=== PATIENT | female | born 1995 | race Caucasian/White ===

== ENCOUNTER 2023-10-17 09:12 | Outpatient (AMB) | payer OTHER, SELFPAY ==
--- NOTE | 2023-10-17 09:13 | MHC.OFFVIS ---
Intake Vital Signs 10/17/23 09:18 Height 5 ft Weight 211 lb BMI 41.2 Intake Visit Reasons: New patient Amenorrhea Interactive Media Marketing Director Required: No Information Interpreted: clinical only Craft Manager: Craft Manager Present Allergies No Known Allergies [No Known Allergies*] Allergy (Unverified 10/17/23 09:19) Medication List - Last Reconciled 10/17/23 by Ashlee Woo CNM No Known Home Meds Is last menstrual period known: Yes Last menstrual period: 10/13/23 Patient : No Do you need a note to return to daycare/school/sports/work: No HPI New patient Amenorrhea HPI Details Patient is here as a new patient but she came to this practice in the past for care and for her and delivery delivering her baby November 20 the birthing center. She is very sad the birthing center closed. She says that is 1 reason she has not had another baby yet. She is sexually active but has not had sex in the last couple of months she has not been on control and she would like to get back on control she was on control pills in the past and did well with them she quit smoking last year. While the visit was made by someone listing amenorrhea as the problem her periods she says are more irregular she reviewed in her telephone dates of the last menses. She has had regular menses all of the fall including June 14 to 12 01 of July 12 to 14 11 of August 13 of September 12 to October 13 till now spotting. Looking back on when she might have had what would could be called in irregular. She had a period in December from the to , then for January 24 2 the , but then she did not get her next period until March 13 and that 1 was late. Discussed that it is possible to have late ovulation or an anovulatory cycle responsible for a late menses at any time but also that it is more common to occur with the setting of increased body mass because of the production of hormones essentially in fat tissue. Reviewed danger signs of control pills and what to do if she has any of them she will start the pill this evening she feels that taking the pill in the evening is the best time for her because her child is autistic and the mornings are chaotic but by the evening after bath time everything is chill. She would like to schedule her annual exam and also hopes to find a primary care provider. She is going to check hospital listings about primary care and we will see her in 3 months for an annual exam and Pap smear. FORMERLY [facility], [facility] Female Reproductive History Menstrual Age of Menarche: 10 Duration of menses: 3-5 days Date of last menstrual period: 10/13/23 control method: none Total pregnancies: 3 Full term: 1 Date of last pap smear: 09/25/18 ( neg ) History of abnormal pap smear: No Physical Exam Vital Signs: BMI result Body Mass Index 41.2 Assessment & Plan Assessment & Plan (1) BCP ( control pills) initiation: Code(s): Z30.011 - Encounter for initial prescription of contraceptive pills (2) Cervical cancer screening: Comment: Previous Pap 2019 ?negative ;We will see her in 3 months for pill check annual exam and Pap smear for which she is due Code(s): Z12.4 - Encounter for screening for malignant neoplasm of cervix Plan Patient is here as a new patient but she came to this practice in the past for care and for her and delivery delivering her baby November 20 the birthing center. She is very sad the birthing center closed. She says that is 1 reason she has not had another baby yet. She is sexually active but has not had sex in the last couple of months she has not been on control and she would like to get back on control she was on control pills in the past and did well with them she quit smoking last year. While the visit was made by someone listing amenorrhea as the problem her periods she says are more irregular she reviewed in her telephone dates of the last menses. She has had regular menses all of the fall including June 14 to 12 01 of July 12 to August 13 of September 12 to October 13 till now spotting. Looking back on when she might have had what would could be called in irregular. She had a period in December from the to , then for January 24 2 the , but then she did not get her next period until March 13 and that 1 was late. Discussed that it is possible to have late ovulation or an anovulatory cycle responsible for a late menses at any time but also that it is more common to occur with the setting of increased body mass because of the production of hormones essentially in fat tissue. Reviewed danger signs of control pills and what to do if she has any of them she will start the pill this evening she feels that taking the pill in the evening is the best time for her because her child is autistic and the mornings are chaotic but by the evening after bath time everything is chill. Reviewed side effects to expect starting the pill what to do for missed pills what to expect if she does miss pills and backup method. She is to start her pills this evening. LMP was October 13 with her. Just ending now with spotting so this is perfect timing. She would like to schedule her annual exam and also hopes to find a primary care provider. She is going to check hospital listings about primary care and we will see her in 3 months for an annual exam and Pap smear. Medications: New desog-e.estradiol/e.estradiol 0.15-0.02 mgx21 /0.01 mg x 5 start today, 1 pill every day 1 tab PO DAILY 84 tabs 4RF Coding Level of Care Code New Pt Level 3 (81587) Diagnoses BCP ( control pills) initiation Z30.011 Cervical cancer screening Z12.4
[2023-10-17 09:18] VITALS: BMI 41.2
== END 2023-10-17 10:00 | disposition home or self-care (01) ==
LOC: HO.HWS 09:12
PROVIDERS: Visit Provider Advanced Practice Midwife
DX: Z30.011 Encounter for initial prescription of contraceptive pills (principal)
CPT/HCPCS: 99203

== ENCOUNTER → 2023-10-17 09:12 | Outpatient (BNVA) | payer OTHER, SELFPAY | PROVIDERS: Visit Provider Advanced Practice Midwife ==

== ENCOUNTER 2025-04-25 01:36 | Emergency (ER) | payer OTHER, SELFPAY ==
[2025-04-25 01:56] VITALS: BP 106/73; PULSE 67; RESP 18; TEMP 36.6; O2SAT 96; BMI 41.4
--- OUTSIDE RECORDS SUMMARY | 2025-04-25 03:07 | XMS_ITS | Clinical Summary ---
Author Organization [facility] Address [address] [place] [address] Care Team Providers Care Child Welfare Manager Name Role Phone Pcp, No Primary Care Provider Unavailabl e Social History Tobacco Use Types Packs/Day Years Used Date Smoking Tobacco: Never Assessed Comments Unknown Sex and Gender Information Value Date Recorded Sex Assigned at Not on file Legal Sex Female 8:33 AM EDT Gender Identity Not on file Sexual Orientation Not on file Plan of Treatment Upcoming Encounters Date Type Department Care Team (Late st Contact Info) Description 06/05/2025 8:45 AM EDT Office Visit [address] [id number] Aspen Mayen PA-C [address] [place] [address] Health Maintenance Due Date Last Done Comments Hepatitis C Virus Screening 1993 HIV Screening 2006 DTaP/Tdap/Td Vaccines (1 - Tdap) 2012 Hepatitis B Vaccines (1 of 3 - 19+ 3-dose series) 2012 Pap Smear (Ages 21-65) 2014 COVID-19 Vaccine ( - 2023-2 5 season) 2024 Influenza Vaccine 04/25/2025 HPV Vaccines Aged Out No longer eligi ble based on patient's age to complete this topic Pneumococcal Vaccine: Pediat tung (0-5 Years) and At-Risk Patients (6 to 49 Years) Aged Out No longer eligible b ased on patient's age to complete this topic Insurance [employer] HMO Care Teams Child Welfare Manager Relationship Specialty Start Date End Date Pcp, No PCP - General General Medicine 02/04/25
--- OUTSIDE RECORDS SUMMARY | 2025-04-25 03:07 | XMS_ITS | Clinical Summary ---
Author Organization [facility] Address [address] [place] [id number] Phone Care Team Providers Care Campground Hand Name Role Phone Pcp, Unknown Primary Care Provider Unavailabl e Allergies No known active allergies Medications No known medications Social History Tobacco Use Types Packs/Day Years Used Date Smoking Tobacco: Never Assessed Education Answer Date Recorded Are you interested in more education? Not on sybil e 01/21/2023 Are you concerned about learning? Not on file 01/21/2023 No 01/21/2023 No 01/21/2023 Digital Access Answer Date Recorded No 02/21/2023 No 02/21/2023 Reliable internet access at home? Not on file 02/21/2023 Device with a working camera? Not on file Comments Unknown Sex and Gender Information Value Date Recorded Sex Assigned at Not on file Legal Sex Female 9:12 PM EDT Gender Identity Not on file Sexual Orientation Not on file Last Filed Vital Signs Vital Sign Reading Time Taken Comments Blood Pressure 102/64 04/05/2022 9:19 PM EDT Pulse 109 04/05/2022 9:19 PM EDT Temperature 36.5 C (97.7 F) 04/05/2022 9:19 PM EDT Respiratory Rate 18 04/05/2022 9:19 PM EDT Oxygen Saturation - - Inhaled Oxygen Concentration - - Weight 97.5 kg (215 lb) 04/05/2022 9:19 PM EDT Height 154.9 cm (5' 1 ) 04/05/2022 9:19 PM EDT Body Mass Index 40.62 04/05/2022 9:19 PM EDT Plan of Treatment Not on file Medical Devices Not on file Insurance C[employer] PPO CIGNA PPO CIGNA PPO CIGNA PPO CIGNA PPO CIGNA PPO CIGNA PPO CIG[employer] PPO [employer] PPO Care Teams Campground Hand Relationship Specialty Start Date End Date Pcp, Unknown PCP - General 04/05/22 Additional Source Comments The information contained in this document represents components of the legal health record. It is not the complete legal health record.[facility]
--- OUTSIDE RECORDS SUMMARY | 2025-04-25 03:07 | XMS_ITS ---
Author Name [facility] Organization Unknown Care Team Organization Name Specialty Phone Email Start Date End [facility] NO PCP Primary Care 02/04/2025
--- NOTE | 2025-04-25 03:54 | ED_ITS ---
HPI - General Adult General Chief complaint: Extremity Problem Stated complaint: swollen left thigh and L leg pain, blood clot? Time Seen by Provider: 04/25/25 03:46 Source: patient Mode of arrival: ambulatory Limitations: no limitations History of Present Illness ED Provider: Dr. Shannan Hoffman HPI narrative: Patient comes to the emergency room complaining of a 3 cm x 3 cm patch of nestor rod on the distal aspect of the left thigh. Patient states that a few days ago she got sunburn. Today, she noted a small lump, patient states that it is locally minimally tender. Patient states that she just wanted to make sure it is not a blood clot. Related Data Previous Rx's ?Medication ?Instructions ?Recorded desogestrel-e.estradiol 0.15 1 tab PO DAILY #84 tabs 0 10/17/23 mg-0.02 mg(21)/e.estrad 0.01 mg(5) tablet Allergies Allergy/AdvReac Type Severity Reaction Status Date / Time No Known Allergies (No Known Allergy Unverified 04/25/25 02:00 Allergies*) Review of Systems Review of Systems: Constitutional : No Weight loss, No Fever, No Chills, No Night Sweats, No Fatigue, No Malaise ENT/Mouth : No Hearing loss, No Ear Pain, No Nasal Congestion, No Sinus Pain, No Hoarseness, No sore throat, No Rhinorrhea, No Swallowing Difficulty Eyes: No Eye Pain, No Swelling, No Redness, No Foreign Body, No Discharge, No Vision Changes Cardiovascular : No Chest Pain, No SOB, No Dyspnea on Exertion, No Orthopnea, No Edema, No Palpitations Respiratory : No Cough, No Sputum, No Wheezing, No Smoke Exposure, No Dyspnea Gastrointestinal : No Nausea, No Vomiting, No Diarrhea, No Constipation, No a bdominal Pain, No Hematochezia, No Melena Genitourinary : no irregular bleeding, No Dysuria, No Urinary Frequency, No Hematuria, No Urinary Incontinence, No Urgency, No Flank Pain, No Urinary Flow Changes, No Hesitancy Musculoskeletal : No joint pain, No Myalgias, No Joint Swelling Skin : No Skin Lesions, No rash Neuro : No Weakness, No Numbness, No Paresthesias, No Loss of Consciousness, No Dizziness, No Headache Psych : No Anxiety/Panic, No Depression, No SI/HI/AH/VH, No Social Issues, Heme/Lymph: Complaining of a 3 cm by things cm bump on her left thigh Endocrine : No Polyuria, No Polydipsia, No Temperature Intolerance [facility] Social History Social History Smoked in Last 30 Days: Yes Substance Use Type: Marijuana Advance Directives: No Advance Directives Information Provided: Yes Patient : No Physical Exam ED Exam Exam: Appearance: Alert. Oriented X3. No acute distress. Eyes: Pupils equal, round and reactive to light. ENT: Pharynx normal. Neck: Normal inspection. Neck supple. No lymph nodes noted. No crepitus CVS: Normal heart rate and rhythm. Pulses normal. Normal S1 and S2 Respiratory: No respiratory distress. Breath sounds normal. No Wheezing. No rales Abdomen: Soft and nontender. No rigidity. No distention. Skin: Skin warm and dry. Normal skin color. Normal skin turgor. Extremities: No lower extremity edema. No Lacerations. No Rash. There is no obvious deformity in the patient's legs, no swelling, no edema, no pain to palpation, no erythema. I do not see any lumps, to say that there is a palpable lump it is far-fetched Neuro: Oriented X 3. No motor deficit. No sensory deficit. Moving all extremities. No slurred speech. CN 2 through 12 grossly intact Psych: calm, cooperative, normal affect Vital Signs: Vital Signs - 24 hr 04/25/25 01:56 Temperature 97.8 F Pulse Rate 67 Respiratory Rate 18 Blood Pressure 106/73 Pulse Oximetry 96 Oxygen Delivery Method Room Air BMI result Body Mass Index 41.4 Course Course Course Narrative: Patient recently sustained some lorenzana to the both lower extremities. They complaining of a possible lump in the left thigh Medical Decision Making Medical Decision Making MDM Narrative: On physical exam, patient is legs look fairly normal, they are still a bit of sunburn present but clearing up well, there is no palpable lymphadenopathy. However, patient is adamant that there is a bit of a swelling in that is specific spot. No significant pain to palpation. Patient has no pain or swelling in the calf , behind the knee or in the thigh. Based on physical exam in patient's chief complaint, this does not seem like a DVT. I discussed with the patient that given that she recently had some lorenzana, it is possible that she may have reactive lymphadenopathy and that may be the lump that she was feeling earlier today. At this time, no further imaging indicated. Patient agrees with plan Discharge Plan Discharge Clinical Impression: Lower extremity lymphadenopathy Patient Disposition: Home, Self-Care Instructions: Lymphadenopathy (ED) Additional Instructions: Please follow-up with your primary care physician tomorrow. If you have any worsening or new symptoms, please return to the emergency room or call 911 Prescriptions: No Action desog-e.estradiol/e.estradiol 0.15-0.02 mgx21 /0.01 mg x 5 tablet 1 tab PO DAILY Qty: 84 4RF Rx Instructions: start today, 1 pill every day Print Language: Thai
[2025-04-25 04:20] VITALS: BP 0/0; PULSE 0; RESP 0; TEMP -17.7; TEMP 0; O2SAT 0
== END 2025-04-25 04:20 | disposition home or self-care (01) ==
PROVIDERS: Emergency Provider Emergency Medicine
DX: R59.1 Generalized enlarged lymph nodes (principal); M79.89 Other specified soft tissue disorders
CPT/HCPCS: 99282; 99284

== ENCOUNTER 2025-05-02 19:45 | Emergency (ER) | payer OTHER, SELFPAY ==
[2025-05-02 20:02] VITALS: BP 122/77; PULSE 93; RESP 18; TEMP 36.8; O2SAT 97; BMI 41.4
--- NOTE | 2025-05-02 20:04 | ED.GENADULT ---
HPI - General Adult General Chief complaint: General Medical Stated complaint: left side face swelling; lymph nodes swollen Time Seen by Provider: 05/03/25 00:42 Source: patient Mode of arrival: ambulatory Limitations: no limitations History of Present Illness ED Provider: Jonny VAZ HPI narrative: The patient is a 29-year-old female presenting to the ED reporting throughout the past week she has been experiencing increasing fatigue, going to bed earlier, and recently developed swelling of the left maxilla, without associated dental pain or tenderness of the swelling. The patient also reports noting a swollen and mildly tender lymph node on the right, but denies lymphadenopathy of the left. The patient denies associated fever/chills, nausea, vomiting, chest pain, shortness of breath, abdominal pain, urinary symptoms, recent sick contacts, or recent trauma. The patient denies any recent weight loss or night sweats. The patient reports she has not seen a dentist in the past year, also has not established with PCP since the of her child 5 years ago, is scheduled to see a new PCP on June 05. Related Data Previous Rx's ?Medication ?Instructions ?Recorded desogestrel-e.estradiol 0.15 1 tab PO DAILY #84 tabs 10/17/23 mg-0.02 mg(21)/e.estrad 0.01 mg(5) tablet amoxicillin 875 mg-potassium 1 tab PO BID #10 tabs 05/03/25 clavulanate 125 mg tablet Allergies Allergy/AdvReac Type Severity Reaction Status Date / Time No Known Allergies (No Known Allergy Unverified 05/02/25 20:02 Allergies*) Review of Systems Review of Systems: Yes all other systems are reviewed and are negative PMFSH Social History Social History Substance Use Type: Marijuana Advance Directives: No Advance Directives Information Provided: Yes Physical Exam ED Vital Signs: Vital Signs - 24 hr 05/02/25 20:02 Temperature 98.3 F Pulse Rate 93 Respiratory Rate 18 Blood Pressure 122/77 Pulse Oximetry 97 Oxygen Delivery Method Room Air BMI result Body Mass Index 41.4 CONSTITUTIONAL: The patient appears non-toxic, well nourished and in no acute distress. Vital signs as documented. HEAD: Atraumatic, normocephalic. EYES: EOMs grossly intact, pupils equal, conjunctiva clear, no exudate. ENT: Nares patent, no discharge. Airway patent, no audible stridor, visible mucosa is pink and moist without noted lesions. There was mild swelling of the left maxillary region, no evidence of parotiditis , no overlying erythema, fluctuance, warmth, or tenderness. NECK: Trachea is midline, there is a isolated single firm lymph node noted in the right cervical anterior chain. No other obvious masses or gross abnormalities. CHEST: Symmetric movement, normal appearance. LUNGS: LS present and CTAB, no w/r/r. Non-labored work of breathing. CARDIAC: Regular Rhythm, S1/S2 appreciated, no murmurs, rubs or gallops. ABDOMEN: Abdomen soft and non-tender x4 quadrants, no palpable masses or organomegaly. : Deferred. EXTREMITIES: Normal tone, moves all extremities spontaneously without reported pain. No obvious acute injury or deformity noted. No inguinal or axillary lymphadenopathy appreciated bilaterally. NEURO: Alert and oriented x3, CN II-XII appear grossly intact. Cerebellar Functioning grossly intact. No obvious sensory or motor deficits. Speech clear and appropriate. PSYCH: normal affect, appropriate eye contact, fluid speech, with appropriate response to questioning. No reported suicidality or homicidality. SKIN: Warm, dry, color appropriate, normal turgor. No rashes noted. Course Course Course Narrative: RME performed by Nichole Hyde PA-C. Patient is a 29 year old assigned female at presenting to the emergency department with left sided facial swelling. Patient states that the left side of her face has been swollen but she has no pain and has a right sided cervical lymphnode that is swollen and hard. Detailed physical exam and review of systems are deferred to the decontamination worker. Labs ordered. Patient placed back in the waiting room pending room availability and results. Medical Decision Making Medical Decision Making MDM Narrative: 1:24 AM 05/03/2025 (Kateryna VAZ): The patient is a 29-year-old female presenting to the ED reporting throughout the past week she has been experiencing increasing fatigue, going to bed earlier, and recently developed swelling of the left maxilla, without associated dental pain or tenderness of the swelling. The patient also reports noting a swollen and mildly tender lymph node on the right, but denies lymphadenopathy of the left. The patient denies associated fever/chills, nausea, vomiting, chest pain, shortness of breath, abdominal pain, urinary symptoms, recent sick contacts, or recent trauma. The patient denies any recent weight loss or night sweats. The patient reports she has not seen a dentist in the past year, also has not established with PCP since the of her child 5 years ago, is scheduled to see a new PCP on June 05. Patient's exam shows swelling of the left maxilla without overlying erythema or tenderness, there was no mandibular swelling or concern for parotiditis. Examination of the patient's bilateral axilla and inguinal lymph chains are negative for lymphadenopathy, patient reports mild vague tenderness of the bilateral inguinal lymph nodes. Laboratory evaluation is reassuring, CRP and ESR are negative. CBC shows no leukocytosis or anemia, there is no CHU or electrolyte abnormalities. The patient's pathology is not entirely clear, however there does not appear to be any acute emergent process requiring admission or observation, patient will be discharged with trial of Augmentin and outpatient follow up with PCP and a dentist. Lab Data MDM Lab Attestation statement: I reviewed the patient's lab results. 05/02/25 20:19 05/02/25 20:19 Labs: Lab Results 05/02/25 Range/Units 20:19 WBC 9.0 (4.8-10.8) X10*3/uL RBC 4.53 (4.20-5.50) X10*6/uL Hgb 13.6 (12.0-16.0) g/dl Hct 38.6 (37.0-47.0) % MCV 85.2 (80.0-98.0) fL MCH 30.0 (27.0-33.0) pg MCHC 35.2 H (31.0-35.0) g/dl RDW 13.2 (11.0-16.0) % Plt Count 231 (160-400) X10*3/uL MPV 9.4 (9.4-12.3) fL Immature Gran % (Auto) 0.1 (0.0-0.4) % Neut % (Auto) 55.9 (45-73) % Lymph % (Auto) 38.0 (20-40) % [place] % (Auto) 4.9 (2-11) % Eos % (Auto) 0.7 (0-4) % Baso % (Auto) 0.4 (0-2) % Lymph # (Auto) 3.4 (1.2-4.9) X10*3/uL [place] # (Auto) 0.4 (0.1-1.2) X10*3/uL Eos # (Auto) 0.1 (0.0-0.4) X10*3/uL Baso # (Auto) 0.0 (0.0-0.2) X10*3/uL Abs Immat Gran (auto) 0.01 (0.00-0.03) X10*3/uL Absolute Neuts (auto) 5.0 (2.0-8.3) x10*3/uL Absolute Nucleated RBC 0.000 (0.0-0.012) X10*3/uL Nucleated RBC % (auto) 0.0 (0.0-0.2) /100WBC ESR 12 (0-20) MM/HR Sodium 139 (135-145) mmol/L Potassium 3.8 (3.3-5.1) mmol/L Chloride 105 (96-108) mmol/L Carbon Dioxide 25 (22-29) mmol/L Anion Gap 13 (12-20) BUN 9 (9-16) mg/dL Creatinine 0.86 (0.5-1.4) mg/dL Estim Creat Clear Calc 102.3 Estimated GFR > 60 Random Glucose 110 (60-115) mg/dL Calcium 9.3 (8.4-10.2) mg/dL Total Bilirubin 0.4 (0.0-1.0) mg/dL AST 24 (5-31) U/L ALT 24 (0-31) U/L Alkaline Phosphatase 74 (39-117) U/L C-Reactive Protein 0.50 (< or = 0.50) mg/dL Total Protein 7.2 (6.5-8.0) g/dL Albumin 4.4 (3.5-5.0) g/dL Prescription Management I considered prescription management with: Antibiotic Discharge Plan Discharge Clinical Impression: Left facial swelling, Cervical lymphadenopathy Patient Disposition: Home, Self-Care Instructions: Lymphadenopathy (ED) Additional Instructions: Thank you for choosing [facility]'s Emergency Department for your care today. At this time there is no indication for admission to the hospital or continued ED observation, and it is safe to discharge you home. The exact cause of your facial swelling and cervical lymph node enlargement is not entirely clear. At this time we are treating you presumptively for a possible dental infection with an antibiotic called Augmentin, please take this as prescribed until it is finished. Your laboratory evaluation and assessment of other lymph node sites are not concerning for other enlarged lymph nodes or white blood cell abnormalities. You may take alternating (staggered) doses of ibuprofen 600mg and Tylenol 1000mg every 4 hours as needed for any pain. Please rest the injured area, and apply ice for 20 minutes every hour. Please follow up with your primary care physician for re-evaluation, additional management of your symptoms, and continued preventative care. If you do not have a primary care physician, please call the [facility] at [phone] to establish a new primary care physician. While waiting to establish your new primary care physician, you can call our [facility] at [phone] for non-emergency needs. Please return to the emergency department if you develop a severe or sudden change in your symptoms, a fever over 100.4 that does not improve with Tylenol or Ibuprofen, recurrent vomiting, or any other new or worsening symptoms or concerns. Prescriptions: New amoxicillin-pot clavulanate 875-125 mg tablet 1 tab PO BID Qty: 10 0RF No Action desog-e.estradiol/e.estradiol 0.15-0.02 mgx21 /0.01 mg x 5 tablet 1 tab PO DAILY Qty: 84 4RF Rx Instructions: start today, 1 pill every day Referrals: Physician,Debra J [Primary Care Provider, Medical] Clinical Impression: Cervical lymphadenopathy; Left facial swelling Print Language: Turkmen
[2025-05-02 20:23] LABS: MANUAL DIFF FLAG NO
[2025-05-02 20:26] LABS: Hematocrit 38.6 % (37.0-47.0); Hemoglobin 13.6 g/dl (12.0-16.0); Imm Gran Abs Auto 0.01 X10*3/uL (0.00-0.03); Imm Gran Pct Auto 0.1 % (0.0-0.4); Lymphocytes Absolute Auto 3.4 X10*3/uL (1.2-4.9); Mean Corpuscular HGB Conc 35.2 g/dl (31.0-35.0); Mean Corpuscular Hemoglobin 30.0 pg (27.0-33.0); Mean Corpuscular Volume 85.2 fL (80.0-98.0); NRBC Abs Auto 0.000 X10*3/uL (0.0-0.012); NRBC Pct Auto 0.0 /100WBC (0.0-0.2); Platelet Count 231 X10*3/uL (160-400); Red Blood Count 4.53 X10*6/uL (4.20-5.50); White Blood Count 9.0 X10*3/uL (4.8-10.8)
[2025-05-02 20:40] LABS: Alanine Aminotransferase 24 U/L (0-31); Albumin Level 4.4 g/dL (3.5-5.0); Alkaline Phosphatase 74 U/L (39-117); Anion Gap 13 (12-20); Aspartate Amino Transferase 24 U/L (5-31); Blood Urea Nitrogen 9 mg/dL (9-16); Calcium 9.3 mg/dL (8.4-10.2); Carbon Dioxide 25 mmol/L (22-29); Chloride 105 mmol/L (96-108); Creatinine Clr Calc Pharmacy 102.3; Estimated Glomerular Filt Rate > 60; Potassium 3.8 mmol/L (3.3-5.1); Sodium 139 mmol/L (135-145); Total Protein 7.2 g/dL (6.5-8.0)
[2025-05-03 01:25] VITALS: BP 104/68; PULSE 68; RESP 14; TEMP 36.7; O2SAT 97
[2025-05-03 02:34] VITALS: BP 111/70; PULSE 74; RESP 16; TEMP 36.6; O2SAT 99
== END 2025-05-03 02:34 | disposition home or self-care (01) ==
PROVIDERS: Physician Assistant Medical; Emergency Provider Emergency Medicine
DX: R22.0 Localized swelling, mass and lump, head (principal); R59.1 Generalized enlarged lymph nodes; R53.83 Other fatigue
CPT/HCPCS: 36415; 80053; 85025; 85652; 86140; 99283

== ENCOUNTER 2025-08-13 22:40 | Emergency (ER) | payer OTHER, SELFPAY ==
--- NOTE | ~2025-08-13 | CT_ITS ---
CLINICAL HISTORY: Left inferior costal margin tenderness severe CT chest without contrast Comparison: None provided Findings: Included lower neck, thyroid gland and mediastinum without acute abnormality. There are no chest lymphadenopathy. There no cardiomegaly or pericardial effusion. The aorta and pulmonary arteries are normal in caliber. There are no coronary artery calcifications. The lungs are clear. No pneumothorax or effusions. The airways are patent. Included upper abdomen without acute abnormality. The adrenal glands are nonenlarged. There is no acute soft tissue abnormality in the chest. There no acute skeletal abnormality. The ribcage is intact. IMPRESSION: 1. Unremarkable noncontrast chest CT. This document has been electronically signed by: Jaya Landin MD on 08/14/2025 03:35:09
[2025-08-13 22:59] VITALS: BP 104/58; PULSE 87; RESP 20; TEMP 36.8; O2SAT 97; BMI 40.4
[2025-08-13 23:30] LABS: MANUAL DIFF FLAG NO
[2025-08-13 23:47] LABS: Hematocrit 39.9 % (37.0-47.0); Hemoglobin 13.5 g/dl (12.0-16.0); Imm Gran Abs Auto 0.02 X10*3/uL (0.00-0.03); Imm Gran Pct Auto 0.2 % (0.0-0.4); Lymphocytes Absolute Auto 3.7 X10*3/uL (1.2-4.9); Mean Corpuscular HGB Conc 33.8 g/dl (31.0-35.0); Mean Corpuscular Hemoglobin 29.3 pg (27.0-33.0); Mean Corpuscular Volume 86.6 fL (80.0-98.0); NRBC Abs Auto 0.000 X10*3/uL (0.0-0.012); NRBC Pct Auto 0.0 /100WBC (0.0-0.2); Platelet Count 231 X10*3/uL (160-400); Red Blood Count 4.61 X10*6/uL (4.20-5.50); White Blood Count 9.4 X10*3/uL (4.8-10.8)
[2025-08-13 23:59] LABS: Alanine Aminotransferase 23 U/L (0-31); Albumin Level 4.3 g/dL (3.5-5.0); Alkaline Phosphatase 74 U/L (39-117); Anion Gap 14 (12-20); Aspartate Amino Transferase 26 U/L (5-31); Blood Urea Nitrogen 9 mg/dL (9-16); Calcium 9.3 mg/dL (8.4-10.2); Carbon Dioxide 20 mmol/L (22-29); Chloride 108 mmol/L (96-108); Creatinine Clr Calc Pharmacy 113.2; Estimated Glomerular Filt Rate > 60; Potassium 3.8 mmol/L (3.3-5.1); Sodium 138 mmol/L (135-145); Total Protein 6.9 g/dL (6.5-8.0)
[2025-08-14 00:57] VITALS: BP 97/58; PULSE 71; RESP 20; TEMP 36.8; O2SAT 97
--- NOTE | 2025-08-14 01:30 | ED_ITS ---
HPI - General Adult General Chief complaint: Skin/Abscess/Foreign Body Stated complaint: pain under left breast w/ left rib swelling Time Seen by Provider: 08/14/25 01:05 History of Present Illness ED Provider: Dwayne Tse MD HPI narrative: Author / Clinician: Dwayne Tse MD Chief Complaint Left chest wall swelling and tenderness. History of Present Illness The patient reports new-onset swelling of the skin overlying the left rib cage, just inferior to the left breast. She describes pinpoint tenderness that begins in the left axilla and radiates toward the left breast. She denies any known trauma, recent strenuous exercise, heavy lifting, or prior similar episodes. . No associated back pain. Otherwise healthy with no chronic medical problems, daily medications, or prior surgeries. She last breastfed approximately five years ago. Review of Systems - Musculoskeletal: Reports localized left chest wall pain/tenderness and a swollen finger. Denies back pain. Denies neck pain; neck feels okay. - Breast: Reports tenderness radiating toward right breast; denies palpable mass. - Constitutional, Respiratory, Cardiovascular, Gastrointestinal, Neurologic, Skin, and all other systems: not discussed. Physical Examination Vital Signs: Physical Exam: - Chest Wall/Breast: Chaperoned by patient director of critical care , Pinpoint tenderness in the left axilla radiating toward the right breast. No specific palpable mass detected on exam. No comment on skin lesion, bruising, deformity, or other signs of trauma. - Musculoskeletal: Swelling noted in one finger (side not specified). No other focal tenderness elicited. Emergency Department Course Non-contrast CT of the chest ordered to evaluate the ribs, lungs, and surrounding soft tissue for occult fracture or other pathology. Assessment & Plan Diagnosis: Left chest wall pain/swelling; rule out rib fracture or other chest wall pathology. Plan: - Obtain non-contrast CT chest as described. - Provide symptom education. Advise patient to follow up with primary care physician for continued symptoms or abnormal imaging results. - If pain or swelling persists after CT is negative, recommend discussion with PCP regarding possible breast imaging to rule out breast lesions. Disposition Related Data Previous Rx's ?Medication ?Instructions ?Recorded desogestrel-e.estradiol 0.15 1 tab PO DAILY #84 tabs 0 10/17/ mg-0.02 mg(21)/e.estrad 0.01 mg(5) tablet amoxicillin 875 mg-potassium 1 tab PO BID #10 tabs 06/19 clavulanate 125 mg tablet Allergies Allergy/AdvReac Type Severity Reaction Status Date / Time No Known Allergies (No Known Allergy Verified 08/13/25 23:02 Allergies*) [facility] Social History Social History Alcohol intake: current Smoked in Last 30 Days: Yes Use of substances other than those prescribed or required for medical reasons: No Substance Use Type: Marijuana Advance Directives: No Patient : No Physical Exam ED Exam Exam: GENERAL: Well appearing. No apparent distress. Alert. HEAD/NECK: No visual trauma. EYES: Normal to inspection. No conjunctival erythema. No discharge. ENMT: Hearing grossly normal. External nose normal. RESPIRATORY: Respiratory effort normal. CARDIOVASCULAR: Additional details (Grossly well perfused). SKIN: No jaundice. NEUROLOGICAL: Alert. Moving all extremities x4. Additional details (No gross motor deficits. Normal tone. ). PSYCHIATRIC: Alert. Appearance appropriate for situation. Left chest exam chaperoned by female PCT. Left breast grossly symmetric to the contralateral side no erythema no obvious lesions or masses. Lower costal margin ribs moderately tender without objective swelling protuberance or fluctuance no bruising or crepitus. She has also with pinpoint tenderness at about 04:00 just lateral to the left breast feels like it is rib focal region that is tender again no crepitus bruising or signs of trauma around here. Those from no axillary or supraclavicular or other regional lymphadenopathy palpable Vital Signs: Vital Signs - 24 hr 08/13/25 22:59 08/14/25 00:57 Temperature 98.3 F 98.2 F Pulse Rate 87 71 Respiratory Rate 20 20 Blood Pressure 104/58 L 97/58 L Pulse Oximetry 97 97 Oxygen Delivery Method Room Air Room Air BMI result Body Mass Index 40.4 Medications Administered Discontinued Medications Generic Name Dose Route Start Last Admin Trade Name Freq PRN Reason Stop Dose Admin Ibuprofen 600 mg 08/14/25 01:39 08/14/25 01:51 Ibuprofen 600 Mg Tablet PO 08/14/25 01:40 600 mg ONCE ONE Administration Lidocaine 1 patch 08/14/25 01:39 08/14/25 01:51 Lidocaine 4 % Patch Adh..Patch TRANSDERMA 08/14/25 01:40 1 patch ONCE ONE Administration Protocol Medical Decision Making Medical Decision Making MDM Narrative: Medical Decision Makin-year-old female with left chest wall discomfort without injury. No difficulty breathing or pleuritic pain to suggest PE seems very musculoskeletal and unlikely to be breast lesion but I did tell her that if workup is negative here she may need to follow up with PCP for referral for formal comprehensive breast imaging she understands this. No nipple discharge no evidence of infection. Plan for CT to evaluate for possible occult or pathologic rib fractures or other chest wall pathology Preliminary Favored Differential Diagnosis: chest strain, contusion, mass, rib Fx/contusion,among additional considered etiologies Testing Interpreted Independently: ?See below for details Radiology or Lab testing Results Reviewed: ?See below for details Consults: ?See below for details Independent Historians/External Chart Reviews: ?See below for details Social Determinants of Health Impacting MDM/Planning: ?See below for details Lab Data 08/13/25 23:25 08/13/25 23:25 Labs: Lab Results 08/13/25 Range/Units 23:25 WBC 9.4 (4.8-10.8) X10*3/uL RBC 4.61 (4.20-5.50) X10*6/uL Hgb 13.5 (12.0-16.0) g/dl Hct 39.9 (37.0-47.0) % MCV 86.6 (80.0-98.0) fL MCH 29.3 (27.0-33.0) pg MCHC 33.8 (31.0-35.0) g/dl RDW 13.2 (11.0-16.0) % Plt Count 231 (160-400) X10*3/uL MPV 9.8 (9.4-12.3) fL Immature Gran % (Auto) 0.2 (0.0-0.4) % Neut % (Auto) 51.8 (45-73) % Lymph % (Auto) 38.8 (20-40) % Randolph % (Auto) 7.1 (2-11) % Eos % (Auto) 1.7 (0-4) % Baso % (Auto) 0.4 (0-2) % Lymph # (Auto) 3.7 (1.2-4.9) X10*3/uL Randolph # (Auto) 0.7 (0.1-1.2) X10*3/uL Eos # (Auto) 0.2 (0.0-0.4) X10*3/uL Baso # (Auto) 0.0 (0.0-0.2) X10*3/uL Abs Immat Gran (auto) 0.02 (0.00-0.03) X10*3/uL Absolute Neuts (auto) 4.9 (2.0-8.3) x10*3/uL Absolute Nucleated RBC 0.000 (0.0-0.012) X10*3/uL Nucleated RBC % (auto) 0.0 (0.0-0.2) /100WBC Sodium 138 (135-145) mmol/L Potassium 3.8 (3.3-5.1) mmol/L Chloride 108 (96-108) mmol/L Carbon Dioxide 20 L (22-29) mmol/L Anion Gap 14 (12-20) BUN 9 (9-16) mg/dL Creatinine 0.76 (0.5-1.4) mg/dL Estim Creat Clear Calc 113.2 Estimated GFR > 60 Random Glucose 121 H (60-115) mg/dL Calcium 9.3 (8.4-10.2) mg/dL Total Bilirubin 0.2 (0.0-1.0) mg/dL AST 26 (5-31) U/L ALT 23 (0-31) U/L Alkaline Phosphatase 74 (39-117) U/L Total Protein 6.9 (6.5-8.0) g/dL Albumin 4.3 (3.5-5.0) g/dL Discharge Plan Discharge Clinical Impression: Chest wall discomfort Patient Disposition: Home, Self-Care Instructions: Chest Wall Pain (ED) Additional Instructions: You were evaluated in the emergency department for left chest wall discomfort without injury. On examination you had tender chest wall/rib and intercostal regions at the margin of your left lower ribcage and on the left side just lateral to your left breast. We do not feel these were suggestive of an acute infection and there was no injury that preceded this. CT of the chest to evaluate bones and soft tissues as well as the underlying lungs was done and unremarkable. But strongly recommend close follow up with your PCP may need referral for comprehensive breast or other additional chest wall imaging if your symptoms persist Prescriptions: No Action amoxicillin-pot clavulanate 875-125 mg tablet 1 tab PO BID Qty: 10 0RF desog-e.estradiol/e.estradiol 0.15-0.02 mgx21 /0.01 mg x 5 tablet 1 tab PO DAILY Qty: 84 4RF Rx Instructions: start today, 1 pill every day Interventions: ED Discharge Assessment Last Done: 08/14/25 02:11 Discharge Date/Time: 08/14/25 02:11 Print Language: Malay
[2025-08-14] MEDS: Lidocaine 4 % Patch ADH..PATCH 1 PATCH TRANSDERMA (01:51)
[2025-08-14 02:10] VITALS: BP 103/59; PULSE 77; RESP 16; TEMP 36.7; O2SAT 95
[2025-08-14 02:11] VITALS: BP 103/59; PULSE 77; RESP 16; TEMP 36.7; O2SAT 95
--- OUTSIDE RECORDS SUMMARY | 2025-08-14 05:30 | XMS_ITS | Clinical Summary ---
Author Organization [facility] Address [address] [place] [id number] Phone Care Team Providers Care Powerhouse Mechanic Helper Name Role Phone Pcp, Unknown Primary Care [...] PPO [employer]IG[employer] PPO [employer]IG[employer] PPO Care Teams Powerhouse Mechanic Helper Relationship Specialty Start Date End Date Pcp, Unknown PCP - General 04/05/22 Additional Source Comments The information contained in this document represents components of the legal health record. It is not the complete legal health record.[facility]
--- OUTSIDE RECORDS SUMMARY | 2025-08-14 05:30 | XMS_ITS | Clinical Summary ---
Author Organization [facility] Address [address] [place] [address] Care Team Providers Care Core Driller Name Role Phone Aspen Mayen PA-C Primary Care Provi jomar Allergies No known active allergies Medications No known medications Active Problems Problem Noted Date Diagnosed Date History of depression 06/05/2025 Assessment & Plan (06/05/2025 9:15 AM EDT): Patient is doing quite well. No anxiety or depression. Obesity (BMI 35.0-39.9 without comorbidity) 05/26 Assessment & Plan (06/05/2025 9:15 AM EDT): Discuss further at patient's visit. Orders: Complete Blood Count, with Differential Comprehensive Metabolic Panel TSH REFLEX FREE T4 Lipid panel with nonHDL Urinalysis with Microscopic Hemoglobin A1c Encounters Date Type Department Care Team Description 06/05/2025 8:45 AM EDT Office Visit [address] [phone] Aspen Mayen PA-C Encounter for medical examination to establish care (Primary Dx); Obesity (BMI 35.0-39.9 without comorbidity); History of depression; History of nicotine vaping 06/05/2025 Travel from Last 3 Months Family History Medical History Relation Name Comments Breast cancer Maternal Aunt Heart disease Mother Hyperlipidemia Mother Diabetes Paternal Aunt Lung cancer Paternal Grandfather Diabetes Paternal Grandmother Relation Name Status Comments Maternal Aunt Mother Paternal Aunt Paternal Grandfather Paternal Grandmother Social History Tobacco Use Types Packs/Day Years Used Date Smoking Tobacco: Former Cigarettes Smokeless Tobacco: Current Tobacco Cessation:Ready to Q uit: Not Asked Comments:Vaping nicotine Alcohol Use Standard Drinks/Week Comments Yes 0 (1 standard drink = 0.6 oz pur e alcohol) 3 drinks per month [facility] Utilities Answer Date Recorded In the past 12 months has th e electric, gas, oil, or water company threatened to shut off services in your home? No 06/04/2025 Social Connection and Isolation Panel Answer Date Recorded In a typical week, how many times do you talk on the phone with family, friends, or neighbors? More than three times a week 06/04/2025 Frequency of Social Gatherin gs with Friends and Family Not on file 06/04/2025 Attends Restorationism Services Not on file 06/04 Active Member of Clubs or Organizations Not on f ile 06/04/2025 Attends Club or Organization Meetings Not on sybil e 06/04/2025 Marital Status Not on file 06/04/2025 AUDIT-C Answer Date Recorded Q1: How often do you have a drink containing alc ohol? Monthly or less 06/04/2025 Q2: How many drinks containi ng alcohol do you have on a typical day when you are drinking? 1 or 2 06/04/2025 Frequency of Binge Drinking Not on file 05/26 PHQ-2 Answer Date Recorded PHQ-2 Total Score 0 06/04/2025 Hunger Vital Sign Answer Date Recorded Within the past 12 months, y ou worried that your food would run out before you got the money to buy more. Never true 06/04/20 25 Within the past 12 months, t he food you bought just didn't last and you didn't have money to get more. Never true 06/04/2025 PRAPARE - Transportation Answer Date Re corded In the past 12 months, has l ack of transportation kept you from medical appointments or from getting medications? No 05/26 In the past 12 months, has l ack of transportation kept you from meetings, work, or from getting things needed for daily living? No 06/04/2025 Housing Stability Vital Sign Answer Moreno e Recorded In the last 12 months, was t here a time when you were not able to pay the mortgage or rent on time? Yes 06/04/2025 In the past 12 months, how m any times have you moved where you were living? 0 06/04/2025 At any time in the past 12 m [facility], were you homeless or living in a prison (including now)? No 06/04/2025 Education Answer Date Recorded What is the highest level of school you have completed or the highest degree you have received? 12th grade 06/04/2025 Comments Unknown Sex and Gender Information Value Date Recorded Sex Assigned at Not on file Legal Sex Female 8:33 AM EDT Gender Identity Not on file Sexual Orientation Not on file Last Filed Vital Signs Vital Sign Reading Time Taken Comments Blood Pressure 90/74 06/05/2025 8:50 AM EDT Pulse 85 06/05/2025 8:50 AM EDT Temperature 36.2 C (97.1 F) 06/05/2025 8:50 AM EDT Respiratory Rate 16 06/05/2025 8:50 AM EDT Oxygen Saturation 97% 06/05/2025 8:50 AM EDT Inhaled Oxygen Concentration - - Weight 98.3 kg (216 lb 12.8 oz) 06/05/2025 8:50 AM EDT Height 157.7 cm (5' 2.1 ) 06/05/2025 8:50 AM EDT Body Mass Index 39.53 06/05/2025 8:50 AM EDT Plan of Treatment Health Maintenance Due Date Last Done Comments Hepatitis C Virus Screening 1993 HIV Screening 2006 Physical 2011 DTaP/Tdap/Td Vaccines (1 - Tdap) 2012 Hepatitis B Vaccines (1 of 3 - 19+ 3-dose series) 2012 Pap Smear (Ages 21-65) 2014 Influenza Vaccine 04/25/2025 COVID-19 Vaccine (1 - 2023-2 5 season) 2025 HPV Vaccines (No Doses Required) Completed Pneumococcal Vaccine: Pediat tung (0-5 Years) and At-Risk Patients (6 to 49 Years) Aged Out No longer eligible b ased on patient's age to complete this topic Insurance [employer] HMO Care Teams Core Driller Relationship Specialty Start Date End Date Aspen Mayen PA-C [address] [place] [address] PCP - General Internal Medicine 06/05/25
--- OUTSIDE RECORDS SUMMARY | 2025-08-14 05:30 | XMS_ITS | Data Portability ---
Author Organization [facility], Main Office Address [address] [facility] [address] [place] [id number] Care Team Providers Care Program Advocate Name Role Phone ESTUARDO DESIR Primary Care Provider [phone] LINA HOWELL Referring Provider Assessment Encounter Date Assessment Date Assessment LastModified by Organization Details LastModified Time 04/30/2015 04/30/2015 Confusing story with history of recurrent UTI and clinical diagnosis of PID in the past. However, she notes that she always has pain with intercourse. Was seen by DIRECTOR IMAGING, who noted that her exam is normal and thought that the pain is just normal for you. Separately, she has 3-4 UTI episodes (after intercourse) per year. phelmuth Not available 04/30/2015 09:49:46 08/10/2016 08/10/2016 Reviewed concerns about weight management. She is planning to increase exercise. Discussed dietary choices as well. Referred again to DIRECTOR IMAGING for evaluation. Recommended that she double her OCP for the next few days until bleeding stops. phelmuth Not available 08/10/2016 20:17:10 Plan of Treatment Reminders Order Date Submit Date Provider Last Modified By Organization Details Last Modified Time Details Appointments None record ed. Lab lipid panel, serum 2015 016 [email or web address] [facility] (Centralized Electronic Ordering - All Locations), Patient Can Go To The Location Of Their Choice, [address] 8 08:59:35 chlamy ena, RNA, urine 2015 016 bsolivanmattos [facility] (Centralized Electronic Ordering - All Locations), Patient Can Go To The Location Of Their Choice, [address] 8 08:59:35 NG RNA, urine 2015 016 bsolivanmattos [facility] (Centralized Electronic Ordering - All Locations), Patient Can Go To The Location Of Their Choice, 8 08:59:35 RPR (rapid plasma reagin ), serum 2015 016 bsolivanmattos [facility] (Centralized Electronic Ordering - All Locations), Patient Can Go To The Location Of Their Choice, 8 08:59:36 HIV (1+2) Ab screen , serum 2015 016 bsolivanmattos [facility] (Centralized Electronic Ordering - All Locations), Patient Can Go To The Location Of Their Choice, 8 08:59:36 HBsAg (hepat itis B surfac e Ag), serum 2015 016 bsolivanmattos [facility] (Centralized Electronic Ordering - All Locations), Patient Can Go To The Location Of Their Choice, 8 08:59:36 hbcab (hepat itis B core Ab) igm, serum 2015 016 bsolivanmattos [facility] (Centralized Electronic Ordering - All Locations), Patient Can Go To The Location Of Their Choice, 8 08:59:37 TSH, serum or plasma 2015 016 bsolivanmattos [facility] (Centralized Electronic Ordering - All Locations), Patient Can Go To The Location Of Their Choice, 8 08:59:34 BMP, serum or plasma 2015 016 bsolivanmattos [facility] (Centralized Electronic Ordering - All Locations), Patient Can Go To The Location Of Their Choice, 8 08:59:34 CBC w/ auto diff 2015 016 bsolivanmattos [facility] (Centralized Electronic Ordering - All Locations), Patient Can Go To The Location Of Their Choice, 8 08:59:34 CT + NG RNA, urine 2014 015 [email or web address] Not available 6 09:49:16 urinal ysis, dipsti ck 2014 015 pheuth In-Office Order, Internal Use Only DO Not Attach Compendium DO Not Attach Compendium, Do Not Delete/merge, [id number] 5 09:49:45 cultur e, urine 2014 015 ELIZABETH Not available 5 13:58:09 urinal ysis, comple te 2014 015 ELIZABETH Not available 5 15:42:11 Referral ophtha lmolog ist referr al 2015 016 amber Mchugh MD, [address] [place], [address], 7 09:02:31 gyneco logist referr al 2015 016 [place], [address], 7 09:02:30 nutrit ionist /dieti july referr al 2015 016 Not available 6 04:32:27 gyneco logist referr al - Histor y of PID. Contin ued pain. 2014 015 faustino Berrios, [address], Purs[facility], [place], [address], 6 09:58:08 Procedures None record ed. Surgeries None record ed. Imaging None record ed. Medication Orders sulfam ethoxa zole 800 mg-tri methop rim 160 mg tablet 2014 015 [employer] [id number], [address] [facility] [address] [place], [address], 6 10:07:52 Pyridi um 200 mg tablet 2014 015 [employer] [id number], [address] [facility] [place], [address], 6 10:07:56 Patient TargetsNo targets recorded. Patient Instructions Encounter Date Encounter Id Patient Instructions Last Modified By Organization Details Last Modified Time 04/30/2015 [id number] painful urinatio n (dysuria): care instructions [email or web address] Not available 04/30/2015 09:49:46 Advised to retur n to DIRECTOR IMAGING to discuss pain with intercourse. Treat UTI now and advised to use single dose of Bactrim after intercourse as prophylaxis. phelmuth Not available 04/30/2015 09:49:46 08/10/2016 [id number] deciding about using medicines to quit smoking ckrym Not available 08/15/2016 15:42:56 Quitting Tobacco : Care Instructions ckrym Not available 08/15/2016 15:42:56 Cervical Cancer Screening [email or web address] [id number] Not available 09/10/2016 04:32:33 abnormal uterine bleeding: care instructions Not available 08/10/2016 11:14:54 Vaginal Bleeding (Nonpregnancy): Care Instructions Not available 08/10/2016 11:14:54 Starting a Weight-Loss Plan: Care Instructions [email or web address] [id number] Not available 09/10/2016 04:32:27 Nutrition Referral and Weight Management Follow-up Information [email or web address] [id number] Not available 09/10/2016 04:32:27 Increase control pills to 2 per day for up to 3 days (until bleeding stops). pheuth Not available 08/10/2016 10:52:35 Medications (OTC , herbal therapies, supplements) reviewed and reconciled with patient and or caregiver, including potential side effects, drug interactions, instructions, and the consequences of not taking medication. Reviewed potential barriers to medication adherence, such as side effects from medication or cost of medication. phelmuth Not available 08/10/2016 20:17:16 Reason for Referral Neighborhood Planner Referral for Dy spareunia History of PID. Continued pain. Referring Physician: Estuardo Desir, Internal Medicine, Encounter Date: 04/30/2015 Neighborhood Planner Referral for Sc reening for malignant neoplasm of cervix Referring Physician: Estuardo Desir, Internal Medicine, Encounter Date: 08/10/2016 Manager Custom/dietitian Refer ral for Body mass index 30+ - obesity Referring Physician: Estuardo Desir, Internal Medicine, Encounter Date: 08/10/2016 Group Segment Consultant Referral for Adult health examination Referring Physician: Estuardo Desir, Internal Medicine, Encounter Date: 08/10/2016 Results Created Date Observation Date Name Description Value Unit Range Abnormal Flag Note LastModifiedBy Organization Detail LastModifiedTime 04/30/2004/30/2015 urina lysis , dipst ick Leukocytes Small Not Available In-Offi ce Order Internal Use Only DO Not Attach Compendium DO Not Attach Compendium, Do Not Delete/merge, [id number] 04/30/2015 09:15:04/30/2004/30/2015 urina lysis , dipst ick Nitrite negati ve Not Available In-Office Order Internal Use Only DO Not Attach Compendium DO Not Attach Compendium, Do Not Delete/merge, [id number] 04/30/2015 09:15:04/30/2004/30/2015 urina lysis , dipst ick Urobilinogen 1 Not Available In-Of fice Order Internal Use Only DO Not Attach Compendium DO Not Attach Compendium, Do Not Delete/merge, [id number] 04/30/2015 09:15:08 04/30/2004/30/2015 urina lysis , dipst ick Protein Negati ve Not Available In-Office Order Internal Use Only DO Not Attach Compendium DO Not Attach Compendium, Do Not Delete/merge, [id number] 04/30/2015 09:15:08 04/30/2004/30/2015 urina lysis , dipst ick pH 7.0 Not Available In-Office Order Internal Use Only DO Not Attach Compendium DO Not Attach Compendium, Do Not Delete/merge, [id number] 04/30/2015 09:15:04/30/2004/30/2015 urina lysis , dipst ick Blood Negati ve Not Available In-Office Order Internal Use Only DO Not Attach Compendium DO Not Attach Compendium, Do Not Delete/merge, [id number] 04/30/2015 09:15:08 04/30/2004/30/2015 urina lysis , dipst ick Specific L[place] 1.015 Not Available In-Off ice Order Internal Use Only DO Not Attach Compendium DO Not Attach Compendium, Do Not Delete/merge, [id number] 04/30/2015 09:15:04/30/2004/30/2015 urina lysis , dipst ick Ketone Negati ve Not Available In-Office Order Internal Use Only DO Not Attach Compendium DO Not Attach Compendium, Do Not Delete/merge, [facility] 04/30/2015 09:15:04/30/2004/30/2015 urina lysis , dipst ick Bilirubin Negati ve Not Available In-Office Order Internal Use Only DO Not Attach Compendium DO Not Attach Compendium, Do Not Delete/merge, [facility] 04/30/2015 09:15:08 04/30/2004/30/2015 urina lysis , dipst ick Glucose Negati ve Not Available In-Office Order Internal Use Only DO Not Attach Compendium DO Not Attach Compendium, Do Not Delete/merge, [facility] 04/30/2015 09:15:08 04/30/2004/30/2015 urina lysis , dipst ick Appearance Clear Not Available In-Offi ce Order Internal Use Only DO Not Attach Compendium DO Not Attach Compendium, Do Not Delete/merge, [facility] 04/30/2015 09:15:04/30/2004/30/2015 urina lysis , dipst ick Color Dark Yellow Not Available In-Office Order Internal Use Only DO Not Attach Compendium DO Not Attach Compendium, Do Not Delete/merge, [facility] 04/30/2015 09:15:04/30/2004/30/2015 urina lysis , compl ete appear/color DARK YELLO W HAZY Not Available [facility] (Centralized Electronic Ordering - All Locations) Patient Can Go To The Location Of Their Choice, [id number] 04/30/2015 15:42:11 04/30/2004/30/2015 urina lysis , compl ete sp. gravity 1.016 (1.002 -1.030 ) Not Available [facility] (Centralized Electronic Ordering - All Locations) Patient Can Go To The Location Of Their Choice, [id number] 04/30/2015 15:42:11 04/30/2004/30/2015 urina lysis , compl ete urine pH 7.0 (4.0-8 .0) Not Available [facility] (Centralized Electronic Ordering - All Locations) Patient Can Go To The Location Of Their Choice, 04/30/2015 15:42:04/30/2004/30/2015 urina lysis , compl ete urine albumin NEGATI VE (neg) Not Available [facility] (Centralized Electronic Ordering - All Locations) Patient Can Go To The Location Of Their Choice, 04/30/2015 15:42:04/30/2004/30/2015 urina lysis , compl ete urine glucose NEGATI VE (neg) Not Available [facility] (Centralized Electronic Ordering - All Locations) Patient Can Go To The Location Of Their Choice, 04/30/2015 15:42:04/30/2004/30/2015 urina lysis , compl ete urine ketones NEGATI VE (neg) Not Available [facility] (Centralized Electronic Ordering - All Locations) Patient Can Go To The Location Of Their Choice, 04/30/2015 15:42:04/30/2004/30/2015 urina lysis , compl ete urine bilirubin NEGATI VE (neg) Not Available [facility] (Centralized Electronic Ordering - All Locations) Patient Can Go To The Location Of Their Choice, 04/30/2015 15:42:04/30/2004/30/2015 urina lysis , compl ete urine hemoglobn NEGATI VE (neg) Not Available [facility] (Centralized Electronic Ordering - All Locations) Patient Can Go To The Location Of Their Choice, 04/30/2015 15:42:04/30/2004/30/2015 urina lysis , compl ete urine nitrite NEGATI VE (neg) Not Available [facility] (Centralized Electronic Ordering - All Locations) Patient Can Go To The Location Of Their Choice, 04/30/2015 15:42:04/30/2004/30/2015 urina lysis , compl ete urine leukocyte 1+ (neg) abnormal Not Available [facility] ([facility] Order[facility] - All Locations) Patient Can Go To The Location Of Their Choice, 04/30/2015 15:42:04/30/2004/30/2015 urina lysis , compl ete urobilinogen NORMAL mg/dL (norm) Not Available [facility] ([facility] - All Locations) Patient Can Go To The Location Of Their Choice, 04/30/2015 15:42:11 04/30/2004/30/2015 urina lysis , compl ete urine WBC's 33 /hpf (0-5) high Not Available [facility] (Centralized [facility] Ordering - All Locations) Patient Can Go To The Location Of Their Choice, 04/30/2015 15:42:04/30/2004/30/2015 urina lysis , compl ete urine RBC's 1 /hpf (<3) Not Available [facility] (Centralized [facility] Ordering - All Locations) Patient Can Go To The Location Of Their Choice, 04/30/2015 15:42:04/30/2004/30/2015 urina lysis , compl ete bacteria SLIGHT hpf (neg) abnormal Not Available [facility] (Centralized Electronic Ordering - All Locations) Patient Can Go To The Location Of Their Choice, 04/30/2015 15:42:11 04/30/2004/30/2015 urina lysis , compl ete mucus SLIGHT /lpf Not Available [facility] (Centralized Electronic Ordering - All Locations) Patient Can Go To The Location Of Their Choice, 04/30/2015 15:42:11 04/30/2004/30/2015 urina lysis , compl ete squamous epith 8 /hpf Not Available [facility] ([facility] Ordering - All Locations) Patient Can Go To The Location Of Their Choice, 04/30/2015 15:42:04/30/2004/30/2015 urina lysis , compl ete amorphous crystals SLIGHT /hpf Not Available [facility] (Centralized [facility] Ordering - All Locations) Patient Can Go To The Location Of Their Choice, 04/30/2015 15:42:04/30/2004/30/2015 cultu re, urine specimen description BD TRANSP ORT TUBE Not Available [facility] (Centralized Electronic Ordering - All Locations) Patient Can Go To The Location Of Their Choice, 05/02/2015 13:58:04/30/2004/30/2015 cultu re, urine special requests NONE Not Available [facility] ([facility] Ordering - All Locations) Patient Can Go To The Location Of Their Choice, [id number] 05/02/2015 13:58:04/30/2005/02/2015 cultu re, urine culture >100, 000 COL/M L STAPH YLOCO CCUS SAPRO PHYTI CUS. OJANACE PTIBI LITY TESTI NG NOT ROUTI KRISTIAN PERFO RMED ON THIS ISOLA TE. Not Available [facility] (Centralized Electronic Ordering - All Locations) Patient Can Go To The Location Of Their Choice, [id number] 05/02/2015 13:58:04/30/2005/02/2015 cultu re, urine report status FINAL 2014 Not Available [facility] (Centralized Electronic Ordering - All Locations) Patient Can Go To The Location Of Their Choice, 05/02/2015 13:58:04/30/2005/02/2015 cultu re, urine organism ORGAN ISM >100, 000 COL/M L STAPH YLOCO CCUS SAPRO PHYTI CUS. SUSCE PTIBI LITY TESTI NG NOT ROUTI KRISTIAN PERFO RMED ON THIS ISOLA TE. Not Available [facility] (Centralized Electronic Ordering - All Locations) Patient Can Go To The Location Of Their Choice, 05/02/2015 13:58:04/30/2005/02/2015 cultu re, urine method METHOD MIN. INHIB. CONC. (MCG/M L) Not Available [facility] (Centralized Electronic Ordering - All Locations) Patient Can Go To The Location Of Their Choice, 05/02/2015 13:58:04/30/2004/30/2015 cultu re, urine specimen description BD TRANSP ORT TUBE Not Available [facility] (Centralized Electronic Ordering - All Locations) Patient Can Go To The Location Of Their Choice, 08/10/2015 04:19:34 04/30/2004/30/2015 cultu re, urine special requests NONE Not Available [facility] ([facility] Ordering - All Locations) Patient Can Go To The Location Of Their Choice, 08/10/2015 04:19:34 04/30/2005/01/2015 cultu re, urine culture >100,0 00 COL/ML STAPH. SPECIE S, BEING IDENTI FIED Not Available [facility] (Centralized Electronic Ordering - All Locations) Patient Can Go To The Location Of Their Choice, [id number] 08/10/2015 04:19:34 Result Notes None recorded. Problems Name Problem SNOMED Code Status Onset Date Resolution Date Notes Provider Name and Address Organization Details Recorded Time Dysuria 05786932 Completed 08/10/2016 CHAYA Ferguson, [facility] 6 10:08:25 Dyspareu husam 72004510 Completed 08/10/2016 CHAYA Ferguson, [facility] 6 10:08:32 Varicell a 05137890 Active 1997 CHAYA Ferguson, [facility] 5 09:10:04 Urinary bladder problem 905967206 Completed 201105/05/2014 RECORDED 08/29/20 12 12:44PM BY CAROLE HERNANDEZ MA, ANNOTATI ON/ADDEN DUM Not Available [facility] 4 05:14:03 Risk of exposure to communic able disease 928566277 Completed 201105/05/2014 RECORDED 08/29/20 12 12:44PM BY CAROLE HERNANDEZ MA, ANNOTATI ON/ADDEN DUM Not Available [facility] 4 05:14:03 Well child 978930955 Completed 201105/05/2014 IMPRESSI ON: NORMAL EXAM, WILL CONTACT PT WITH RESULTS WHEN AVAILABL E. SEE BACK FOR ROUTINE CARE NEXT SPRING FOR SOONER PRN.; RECORDED 08/29/20 12 12:44PM BY CAROLE HERNANDEZ MA, ANNOTATI ON/ADDEN DUM Not Available [facility] 4 05:14:03 Adult health examinat ion Completed 201105/05/2014 RECORDED 08/29/20 12 12:44PM BY CAROLE HERNANDEZ MA, ANNOTATI ON/ADDEN DUM Not Available [facility] 4 05:14:03 Screenin g for malignan t neoplasm of cervix Completed 201105/05/2014 RECORDED 08/29/20 12 12:44PM BY CAROLE HERNANDEZ MA, ANNOTATI ON/ADDEN DUM Not Available [facility] 4 05:14:03 Urinary bladder problem 344650343 Completed 201104/08/2014 RECORDED 08/29/20 12 12:44PM BY CAROLE HERNANDEZ MA, ANNOTATI ON/ADDEN DUM Not Available [facility] 4 13:30:36 Risk of exposure to communic able disease 735071338 Completed 201104/08/2014 RECORDED 08/29/20 12 12:44PM BY CAROLE HERNANDEZ MA, DOMINIKATI ON/ADDEN DUM Not Available [facility] 4 13:30:36 Well child 692884095 Completed 201104/08/2014 IMPRESSI ON: NORMAL EXAM, WILL CONTACT PT WITH RESULTS WHEN AVAILABL E. SEE BACK FOR ROUTINE CARE NEXT SPRING FOR SOONER PRN.; RECORDED 08/29/20 12 12:44PM BY CAROLE HERNANDEZ MA, LÁZARO ON/ADDEN DUM Not Available [facility] 4 13:30:36 Adult health examinat ion Completed 201104/08/2014 RECORDED 08/29/20 12 12:44PM BY CAROLE HERNANDEZ MA, ANNOTATI ON/ADDEN DUM Not Available [facility] 4 13:30:37 Screenin g for malignan t neoplasm of cervix Completed 201104/08/2014 RECORDED 08/29/20 12 12:44PM BY CAROLE HERNANDEZ MA, ANNOTATI ON/ADDEN DUM Not Available [facility] 4 13:30:37 Tobacco dependen ce syndrome 10432755 Completed 201104/08/2014 RECORDED 08/29/20 12 12:44PM BY CAROLE HERNANDEZ MA, ANNOTATI ON/ADDEN DUM CHAYA Ferguson MA - [facility] 6 10:08:41 Dysuria 15972190 Completed 201105/05/2014 RECORDED 08/31/20 12 2:36PM BY LÁZARO DESHPANDE ON/ADDEN DUM CHAYA Ferguson, [facility] 6 10:08:25 Dysuria 04439531 Completed 201104/08/2014 RECORDED 08/31/20 12 2:36PM BY LÁZARO DESHPANDE ON/ADDEN DUM CHAYA Ferguson, [facility] 6 10:08:25 Contrace ption care manageme nt Completed 201205/05/2014 RECORDED 03/27/20 13 12:51PM BY LÁZARO DESHPANDE ON/ADDEN DUM Not Available [facility] 4 05:14:03 Female genital organ symptoms Completed 201205/05/2014 IMPRESSI ON: WITH NEG GC AND CHLAMYDI A, PELVIC US NORMAL. VAG SWAB PENDING. MAY D/C DOXY, CONTINUE FULL COURSE OF FLAGYL. I AM GOING TO [place] FOR UTI GIVEN SXS. ADVISED TO PUSH FLUID, CONCENTR ATED CRAN JUICE. CALL FOR WORSENIN G/PRN. WILL BE IN TOUCH WITH VAG SWAB RESULTS WHEN AVAIL.; RECORDED 03/27/20 13 12:51PM BY LÁZARO DESHPANDE ON/ADDEN DUM Not Available [facility] 4 05:14:03 Contrace ption care manageme nt Completed 201204/08/2014 RECORDED 03/27/20 13 12:51PM BY LÁZARO DESHPANDE ON/ADDEN DUM Not Available [facility] 4 13:30:36 Dysfunct ional uterine bleeding Active 2012 IMPRESSI ON: PROBABLY D/T INCONSIS TENT OCP, URINE HCG NEG., HAS CONTINUE D TAKING OCP AND ADVISE TO CONTINUE CONSISTE NTLY CHAYA Ferguson, [facility] 6 10:08:18 Female genital organ symptoms Completed 201204/08/2014 IMPRESSI ON: WITH NEG GC AND CHLAMYDI A, PELVIC US NORMAL. VAG SWAB PENDING. MAY D/C DOXY, CONTINUE FULL COURSE OF FLAGYL. I AM GOING TO [place] FOR UTI GIVEN SXS. ADVISED TO PUSH FLUID, CONCENTR ATED CRAN JUICE. CALL FOR WORSENIN G/PRN. WILL BE IN TOUCH WITH VAG SWAB RESULTS WHEN AVAIL.; RECORDED 03/27/20 13 12:51PM BY DOMINIK DESHPANDEATI ON/ Not Available [facility] 4 13:30:37 Dysfunct ional uterine bleeding Completed 201305/05/2014 IMPRESSI ON: PROBABLY D/T INCONSIS TENT OCP, URINE HCG NEG., HAS CONTINUE D TAKING OCP AND ADVISE TO CONTINUE CONSISTE NTLY; RECORDED 03/14/20 14 2:54PM BY CAROLE HERNANDEZ MA, LÁZARO ON/ CHAYA Ferguson [facility] 6 10:08:18 Tobacco dependen ce syndrome 39318126 Completed 201305/05/2014 RECORDED 03/19/20 14 2:05PM BY CAROLE HERNANDEZ MA, LÁZARO / CHAYA Ferguson [facility] 6 10:08:41 Cyst of ovary 01739507 Active 2013 CHAYA Ferguson [facility] 6 10:08:39 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 CHAYA Ferguson [facility] 6 10:08:35 Tobacco dependen ce syndrome 67592232 Active 2013 CHAYA Ferguson [facility] 6 10:08:41 Problem Notes None recorded. Procedures Surgical History Date Name Laterality Status Provider Name and Address Organization Details Recorded Time 2 Induced d&c completed Olesya tripathi MA [facility] 04/30/2015 09:48:37 0 Date of Last Pap Smear completed Olesya tripathi MA [facility] 04/30/2015 09:48:50 Imaging Results None recorded. Procedure Notes None recorded. Medical Equipment None Reported. Allergies No known drug allergies Medications Name Sig Start Date Stop Date Status Note LastModified by Organization Details LastModified Time doxycycli ne hyclate 100 mg capsule TWO TIMES DAILY 09/12 completed RECORDED 3 11:50AM BY COLLEEN Pérez PA-C, MEDICATIO N AUTO-INAC TIVATION; AVOID PROLONGED SUN Not Available Not Available Not Available phenazopy ridine 200 mg tablet Take 1 tablet 3 times a day by oral route for 5 days. 08/10 completed Not Available Not Available Not Available metronida zole 500 mg tablet TWO TIMES DAILY 09/12 completed RECORDED 4 8:51PM BY CAROLE Pérez MA, MEDICATIO N AUTO-INAC TIVATION; NO ALCHOLOL USE Not Available Not Available Not Available ciproflox acin 250 mg tablet BID 05/06 completed RECORDED 4 8:56AM BY KATE FERNANDEZ, MEDICATIO N AUTO-INAC TIVATION; Not Available Not Available Not Available sulfameth oxazole 800 mg-trimet hoprim 160 mg tablet Take 1 tablet twice a day by oral route for 7 days. 08/10 completed Not Available Not Available Not Available oxycodone -acetamin ophen 5 mg-325 mg tablet 08/10 completed Not Available Not Available Not Available levofloxa flores 500 mg tablet DAILY active RECORDED 4 2:45PM BY CHAYA HERRING, OFFICE VISIT; Not Available Not Available Not Available Altavera (28) 0.15 mg-0.03 mg tablet TAKE 1 TABLET BY MOUTH EVERY DAY active Not Available Not Available No t Available Vitals Date Recorded Heart rate Oxygen saturation Body weight Body height Body mass index (BMI) Body temperature Systolic And Diastolic Provider Name and Address Organization Details Last Updated DateTime 5 80 /min 97 % 31766.6 6475 g 154.94 cm 33.1 kg/m2 98 [degF] 90/58 mm[Hg] Olesya mcnamara MA [facility] 5 09:16:59 Date Recorded Oxygen saturation Heart rate Body temperature Body weight Body height Body mass index (BMI) Systolic And Diastolic Provider Name and Address Organization Details Last Updated DateTime 6 97 % 112 /min 98.7 [degF] 52260.4 4 g 157.48 cm 32.6 kg/m2 92/60 mm[Hg] Olesya mcnamara MA [facility] 6 10:17:39 Social History Question Answer Notes LastModified by Organizat ion Details LastModified Time Tobacco Smoking Status Current Every Day [facility] 09:13:35 Do You Have An Advance Directive? Yes Signed On 04/30/2015 Information not available 04/30/2015 Is Blood Transfusion Acceptable In An Emergency? Yes Information not available 04/30/2015 What Is Your Level Of Caffeine Consumption? Moderate 1 Bottle Of Soda Per Week; 1 Large Coffee Daily Information not available 04/30/2015 How Much Tobacco Do You Chew? None Information not available 04/30/2015 What Type Of Diet Are You Following? REGULAR Information not available 04/30/2015 Which Illicit Or Recreational Drugs Have You Used? None Information not available 04/30/2015 Live Alone Or With Others? With Others Parents Information not available 04/30/2015 Do You Take Precautions To Prevent Distracted Driving? No Talks On Phone Information not available 04/30/2015 How Often Do You Need To Have Someone Help You When You Read Instructions, Pamphlets, Or Other Written Material From Your Doctor Or Pharmacy? Never Information not available 04/30/2015 Have You Served In The ? No Information not available 08/10/2016 How Many Children Do You Have? 0 Information not available 04/30/2015 Do You Use Protection During Sex? No Information not available 04/30/2015 Seat Belts Used Routinely Yes Information not available 04/30/2015 Are You Sexually Active? Yes Information not available 04/30/2015 Smoke Alarm In Home Yes Information not available 04/30/2015 At What Age Did You Start Smoking Tobacco? 14 Information not available 04/30/2015 Are You Passively Exposed To Smoke? Yes Information not available 04/30/2015 How Much Tobacco Do You Smoke? 0.5 PPD Information not available 04/30/2015 Do You Use Sunscreen Routinely? Yes Information not available 04/30/2015 How Many Years Have You Smoked Tobacco? 18 Information not available 08/10/2016 Sex: Unknown Functional Status Question Answer Note LastModified by Organizat ion Details LastModified Time What is your level of alcohol consumption? Occasional twice per month Information not available 08/10/2016 Are you currently employed? Yes Information not available 04/30/2015 Are you able to care for yourself independently ? 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 None Information not available 04/30/2015 Mental Status None recorded. Family History Relationship Description Onset Age of this Age Resolved Age Notes LastModified by Organization Details LastModified Time Mother Arthritis [email or web address] s Not available 04/30/2015 09:47:35 Mother Lupus erythematosu s bsolivanmatto s Not available 04/30/2015 09:47:35 Father Depressive disorder bsolivanmatto s Not available 04/30/2015 09:47:35 Paternal Grandmother Alcoholism bsolivanmatto s Not available 04/30/2015 09:47:35 Maternal Grandfather Alcoholism bsolivanmatto s Not available 04/30/2015 09:47:35 Paternal Uncle Alcoholism bsolivanmatto s Not available 04/30/2015 09:47:35 Sister Depressive disorder 22 phelmuth Not available 2015 10:56:46 Maternal Aunt Malignant neoplasm of breast phelmuth Not available 2015 10:57:27 Maternal Uncle Malignant neoplasm of pharynx phelmuth Not available 2015 10:57:39 Medical History Condition Response Coronary Artery Disease N Other Y Gout N Kidney Stones N Blood Diseases N Hyperthyroidism N Breast Cancer N mrsa exposure N COPD N Depression N Lung Disease N Hypothyroidism N Defects or Inherited Disease N Developmental or Behavioral Disorders N Breast Problem N Anesthesia Complications N Headaches/Migraines N Varicose Veins N Anxiety Disorder N Muscle, Joint, or Bone Problems N Obesity N Vision or Eye Problems N Arthritis N Head Injury/Concussion N Polyps N Infertility N Mental Disorder N Congenital Anomalies N Acid Reflux (GERD) N Cancer N Stroke N ADHD N Endometriosis N High Cholesterol N Liver Disease N Fibromyalgia N Headaches N Kidney Disease N Heart Problems N Ear or Hearing Problems N Hospitalizations N Thyroid Problems N GI Problems N Developmental Delay N Acne N Skin Problems N Eating Disorder N Anemia N Constipation N Bladder Problems N Mental Illness N Ovarian Cancer N Diabetes N Bedwetting N Blood Transfusions N Seizures/Epilepsy N Heart Problems/Murmur N Tuberculosis N AIDS/HIV N Congestive Heart Failure (CHF) N Eczema N Diverticulitis N Abuse/Domestic Violence N Allergies N Asthma N Reflux/GERD N Hepatitis N Heart Disease N Pulmonary Embolism N Hypertension N Osteoporosis N Chicken Pox N Autism Spectrum Disorder (ASD) N Gynecological History Statement/Question Response Date of Last Pap Smear 02/18/2010 Obstetrics History GPAL:G 0 P 0 0 1 0 Type Value Induced 1 Immunizations Vaccine Type Date Status Note Provider Nam e and Address Organization Details Recorded Time DTaP 3 completed Not Available [facility] 04/08/2014 13:45:09 DTaP 3 completed Not Available [facility] 04/08/2014 13:45:09 DTaP 4 completed Not Available [facility] 04/08/2014 13:45:09 DTaP 5 completed Not Available [facility]04/08/2014 13:45:09 DTaP 8 completed Not Available [facility] 04/08/2014 13:45:09 Td (adult), 2 Lf tetanus toxoid, preservative free, adsorbed 5 completed Not Available [facility] 04/08/2014 13:45:09 Hib (HbOC) 3 completed Not Available [facility] 04/08/2014 13:45:09 Hib (HbOC) 3 completed Not Available [facility] 04/08/2014 13:45:09 Hib (HbOC) 4 completed Not Available [facility] 04/08/2014 13:45:09 Hib (HbOC) 4 completed Not Available [facility] 04/08/2014 13:45:09 Hep B, adult 3 completed Not Available [facility] 04/08/2014 13:45:09 Hep B, adult 3 completed Not Available [facility] 04/08/2014 13:45:09 Hep B, adult 4 completed Not Available [facility] 04/08/2014 13:45:09 IPV 3 completed Not Available [facility] 04/08/2014 13:45:09 IPV 3 completed Not Available [facility] 04/08/2014 13:45:09 IPV 4 completed Not Available [facility] 04/08/2014 13:45:09 IPV 8 completed Not Available [facility] 04/08/2014 13:45:09 varicella 8 completed Not Available [facility] 04/08/2014 13:45:09 MMR 4 completed Not Available [facility] 04/08/2014 13:45:09 MMR 8 completed Not Available [facility] 04/08/2014 13:45:09 meningococcal MPSV4 9 completed [facility] 04/08/2014 13:45:10 Tdap 9 completed Not Available [facility] 04/08/2014 13:45:10 HPV, quadrivalent 8 completed Not Available [facility] 04/08/2014 13:45:10 HPV, quadrivalent 8 completed Not Available [facility] 04/08/2014 13:45:10 HPV, quadrivalent 8 completed Not Available [facility] 04/08/2014 13:45:10 Past Encounters Encounter ID Performer Location Encounter Start Date Encounter Closed Date Diagnosis/Indication Diagnosis SNOMED-CT Code Diagnosis ICD10 Code Diagnosis IMO Codes Diagnosis Note [id number] [facility] [address] [facility] [place] [address] 02/03/2012 00:00:00 [id number] [facility] [facility] [address] [facility] [place] [address] 04/24/2012 00:00:00 [id number] [facility] [facility] [address] [facility] [place] [address] 08/29/2012 00:00:00 [id number] [facility] [facility] [address] [facility] [place] [address] 08/31/2012 00:00:00 [id number] [facility] [facility] [address] [facility] [place] [address] 03/27/2013 00:00:00 [id number] [facility] [facility] [address] [facility] [place] [address] 03/14/2014 00:00:00 [id number] [facility] [facility] [address] [facility] [place] [address] 03/19/2014 00:00:00 [id number] [facility] [facility] [address] [facility] [place] [address] 03/26/2014 00:00:00 [id number] Estuardo Desir MD Main Office [address] [facility] [address], [place] [address] 04/30/2015 08:50:32 04/30/2015 09:46:15 Dysuria [id number] Dyspareunia [id number] Estuardo Desir MD Main Office [address] [facility] [address], [place] [address] 08/10/2016 10:03:39 08/10/2016 11:15:25 Adult health examination 663093374 Z00.00 Dysfunctio nal uterine bleeding 84838010 N93.8 Screening for malignant neoplasm of cervix 558561776 Z12.4 Hyperlipidemia 72990244 E78.5 Fatigue 80758124 R53.83 Exposure t o sexually transmissible disorder 592366550 Z20.2 Body mass index 30+ - obesity 007845342 Z68.32 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 Health Concerns Section Related Observation LastModified by Organization Detai ls LastModified Time None Recorded Concern Status LastModified by Organization Details LastModified Time None Recorded Advance Directives Directive Y: signed on 04/30/2015 Payers Insurance Date Sequence Insurance Name Policy Number Policy Up Covered Member ID Up Member ID Guarantor Name 08/10/2016 1 [facility] SINDY [id number] Hill Fuller [id number] [address] Jonny Notes Date Note Type Note Provider Name and Address Organization Details Recorded Time 5 text/html DyspareuniaReported by PatientLocationFor location, patient reportspelvis.SymptomsFo r discharge, patient reportsno thick vaginal dischargeandno watery vaginal discharge. For vulva pain, patient reportsno lesion.Longstanding pain with intercourse. has been told that she has PID on clinical grounds, but never had positive cultures. Urinary FrequencyReported by PatientHPIFor associated symptoms, patient reportsabdominal painandpain during urinationbut reportsno back pain,no chills, andno diarrhea. For severity, patient reportsmoderate. For context, patient reportssuccess with short term antibiotics (has 3-4 uti episodes per year)andsuccess with pyridium. For aggravating factors, patient reportsintercourse.Notes that she has had problems with frequent UTI, which are generally occuring after intercourse. Has been seen for some of these episodes and has been treated as well for PID given symptoms of painful intercourse.ROS as noted in the HPI Estuardo Desir MD [address] [address], [place], [address], [facility] 04/30/2015 09:50:06 6 text/html Here for PE visit. Reviewed chronic medications and medical problems. Discussed screening guidelines as well as goals for fitness and weight management. Needs follow up with [employer]OR IMAG[employer]. has not made appt since last visit when we recommended referral. Notes that she has had prolonged period despite good adherence to OCP. No significant cramping. Estuardo Desir MD [address], [address], [facility] 08/10/2016 20:18:57 OBGyn Episode No OBEpisode recorded.
== END 2025-08-14 02:11 | disposition home or self-care (01) ==
PROVIDERS: Emergency Provider Emergency Medicine
DX: R07.89 Other chest pain (principal); M79.89 Other specified soft tissue disorders
CPT/HCPCS: 36415; 71250; 80053; 85025; 99284

== ENCOUNTER → 2025-08-14 01:34 | Outpatient (BNV) | payer OTHER, SELFPAY | PROVIDERS: Emergency Provider Emergency Medicine; Visit Provider Radiology Diagnostic Radiology | DX: R07.82 Intercostal pain (principal) | CPT/HCPCS: 71250 ==